=== PATIENT | female | born 1980 | race Caucasian/White ===

== ENCOUNTER 2018-06-16 17:37 | Emergency (ER) | payer MEDICAID ==
[~2018-06-16] VITALS: Ht 152.4 cm; Wt 95.5 kg
[2018-06-16 17:46] VITALS: BP 148/86; TEMP 98
[2018-06-16] MEDS ORDERED: PREDNISONE20 MG PO ×3 (18:26→18:40)
[2018-06-16 18:41] VITALS: PULSE 80
== END 2018-06-16 18:43 | disposition home or self-care (01) ==
LOC: COL.ER 17:37
DX: M75.42 Impingement syndrome of left shoulder (principal); M75.41 Impingement syndrome of right shoulder; M77.11 Lateral epicondylitis, right elbow
CPT/HCPCS: J1885; J7512

== ENCOUNTER → 2018-06-20 | Outpatient (CLI) | payer MEDICAID ==
[~2018-06-20] VITALS: Ht 148.6 cm; Wt 87.8 kg
[~2018-06-20] MED LIST: PREDNISONE20 MG PO
[2018-06-20 09:24] VITALS: BP 128/86; PULSE 88
== END ==
LOC: LIGHT 08:58
DX: K21.9 Gastro-esophageal reflux disease without esophagitis (principal); M15.9 Polyosteoarthritis, unspecified; R53.83 Other fatigue; E66.9 Obesity, unspecified; Z68.39 Body mass index [BMI] 39.0-39.9, adult; Z71.3 Dietary counseling and surveillance
CPT/HCPCS: G0463

== ENCOUNTER → 2018-06-25 | Outpatient (CLI) | payer MEDICAID ==
[2018-06-25 11:40] LABS: ALBUMIN 4.1 gm/dL (3.5-5.0); BILIRUBIN,TOTAL 0.7 mg/dL (0.0-1.0); CALCIUM 9.7 mg/dL (8.4-10.2); CHOLESTEROL RISK RATIO 2.3; CREATININE, serum 0.76 mg/dL (0.52-1.25); POTASSIUM 4.5 mmol/L (3.4-5.0)
[2018-06-25 12:09] LABS: THYROID STIMULATING HORMONE 2.85 uIU/mL (0.465-4.680)
== END ==
LOC: COL.LAB 10:32
PROVIDERS: Family Medicine
DX: E66.9 Obesity, unspecified (principal)

== ENCOUNTER → 2018-07-17 | Outpatient (CLI) | payer MEDICAID ==
[~2018-07-17] VITALS: Ht 148.6 cm; Wt 87.1 kg
[2018-07-17 16:11] VITALS: BP 120/76; PULSE 92
== END ==
LOC: LIGHT
DX: K21.9 Gastro-esophageal reflux disease without esophagitis (principal); M15.9 Polyosteoarthritis, unspecified; G47.00 Insomnia, unspecified; E66.9 Obesity, unspecified; Z68.39 Body mass index [BMI] 39.0-39.9, adult; Z71.3 Dietary counseling and surveillance
CPT/HCPCS: G0463